=== PATIENT | male | born 1945 | race Caucasian/White ===

== ENCOUNTER 2017-11-01 10:22 | Outpatient (CLI) | payer BC ==
--- NOTE | 2017-11-01 11:54 | RAD ---
SINGLE VIEW OF THE ABDOMEN: COMPARISON: 10/26/16. HISTORY: Calculus of the kidney and renal cyst. FINDINGS: Anterior views of the abdomen show a nonspecific, nonobstructed bowel gas pattern. No obvious calcif ications are seen projecting over either renal shadow or along the course of the ureters. Degenerati ve changes are seen in the spine. Cholecystectomy clips are present. IMPRESSION: No urinary collecting system calculi identified. POS: [facility]
== END 2017-11-01 10:23 | disposition home or self-care (01) ==
LOC: RAD 10:22
PROVIDERS: ATTEND Urology
DX: N20.0 Calculus of kidney (principal); N28.1 Cyst of kidney, acquired; Z12.5 Encounter for screening for malignant neoplasm of prostate; M10.9 Gout, unspecified; R39.198 Other difficulties with micturition; N40.0 Benign prostatic hyperplasia without lower urinary tract symptoms
CPT/HCPCS: 36415; 74018; 80048; 81001; 84550; 87086; G0103

== ENCOUNTER 2018-02-28 09:02 | Outpatient (CLI) | payer BC ==
--- NOTE | 2018-02-28 10:50 | RAD ---
Left knee 4 views: HISTORY: Acute pain of the left knee. FINDINGS/IMPRESSION: Mild degenerative changes are present. No fracture, dislocation, or bony destruction is identified. Surgical clips are noted in the soft tissues posteromedially. POS: [facility]
== END 2018-02-28 09:03 | disposition home or self-care (01) ==
LOC: SCSRAD 09:02
PROVIDERS: ATTEND Nurse Practitioner Family
DX: M25.562 Pain in left knee (principal)

== ENCOUNTER 2018-06-27 07:42 | Outpatient (CLI) | payer BC ==
--- NOTE | 2018-06-27 09:47 | MRI ---
MRI LEFT KNEE: Date: 06/27/18 PROVIDED CLINICAL HISTORY: Left knee pain. FINDINGS: The anterior cruciate ligament, posterior cruciate ligament, medial collateral ligament, and lateral collateral ligamentous complex demonstrates an intact MRI appearance, as does the extensor mechanism. There is complex tearing involving the body and posterior horn of the medial meniscus without definit e meniscal displacement. The lateral meniscus demonstrates no evidence for tear. There is articular cartilage loss which is full thickness over portions of the central weightbearing portions of the medial femorotibial joint. There is marrow edema within the medial tibial plateau wit h superimposed linear T1 and T2 subcortical hypointensity. Articular cartilage loss involves the lateral and patellofemoral joint compartments to a milder degre e, though there is full thickness articular cartilage loss involving the median ridge and medial face t of the patellar regions. There is a mild knee joint effusion. There is a small Chavez's cyst. No additional focal concerning re gional marrow or muscular signal abnormality apparent. IMPRESSION: 1. Complex body and posterior horn medial meniscal tear. 2. Medial femorotibial greater than patellofemoral articular chondrosis with superimposed subchondra l insufficiency fracture involving the medial femoral condyle. 3. Small knee joint effusion. POS: [facility]
== END 2018-06-27 07:43 | disposition home or self-care (01) ==
LOC: MRI 07:42
PROVIDERS: ATTEND Family Medicine
DX: M17.12 Unilateral primary osteoarthritis, left knee (principal); S83.242A Other tear of medial meniscus, current injury, left knee, initial encounter; M84.452A Pathological fracture, left femur, initial encounter for fracture; M25.462 Effusion, left knee

== ENCOUNTER 2018-11-06 14:28 | Outpatient (CLI) | payer BC ==
--- NOTE | 2018-11-06 15:34 | ULT ---
RENAL ULTRASOUND: 11/06/18 HISTORY: Renal cyst. COMPARISON: 01/10/17 CT examination. Real time imaging of the right and left kidneys were performed. The right kidney measures 12.3 and th e left 12 cm in size. Within the right kidney in the mid to upper pole region is a 1.4 cm hypodense l esion which appears to represent a small cyst. Difficult to characterize due to its small size but it does appear stable as compared to the 01/10/17 CT examination. No renal calculi are identified. The bladder region appears unremarkable. Postvoid volume of 135 mL was obtained. IMPRESSION: 1. Right renal cyst which appears stable in size as compared to a 01/10/17 CT. 2. Postvoid residual of t he bladder of 135 mL. POS: [facility]
== END 2018-11-06 14:29 | disposition home or self-care (01) ==
LOC: BICULT 14:28
PROVIDERS: ATTEND Urology
DX: Z12.5 Encounter for screening for malignant neoplasm of prostate (principal); N20.0 Calculus of kidney; N28.1 Cyst of kidney, acquired; M10.9 Gout, unspecified; N40.0 Benign prostatic hyperplasia without lower urinary tract symptoms; R31.29 Other microscopic hematuria
CPT/HCPCS: 76770

== ENCOUNTER 2019-02-05 08:30 | Outpatient (CLI) | payer BC, MEDICARE ==
[2019-02-05 09:49] LABS: Bilirubin Negative (Negative); Blood, Urine Small (Negative); Clarity CLEAR (Clear); Glucose, Urine (Dipstick) Negative (Negative); Leukocyte Negative (Negative); Nitrite Negative (Negative); Protein, Urine (Dipstick) Trace mg/dL (Neg-Trace); Specific Gravity, Urine 1.024 (1.002-1.036); pH, Urine 5.5 (5.0-9.0)
[2019-02-05 09:51] LABS: Bacteria/HPF None Seen HPF (None Seen); Hyaline Casts/LPF 0-3 HYALINE CAST LPF (0-3 Hyaline); Pathc Cast-AUWi Flag 0.54 (0-2.49); Squamous Epithelial 0-3 HPF (0-3); WBC/HPF 0-3 HPF (0-3)
--- NOTE | 2019-02-06 07:19 | EKG ---
Test Reason : Blood Pressure : / mmHG Vent. Rate : 063 BPM Atrial Rate : 063 BPM P-R Int : 172 ms QRS Dur : 134 ms QT Int : 464 ms P-R-T Axes : 039 -14 034 degrees QTc Int : 474 ms ? Demand pacemaker; interpretation is based on intrinsic rhythm /With Sinus Rhythm Sinus rhythm with Possible Premature atrial complexes with Abberant conduction Right bundle branch block Abnormal ECG When compared with ECG of 28-APR-2009 15:04, Electronic demand pacing is now Present Abberant conduction is now Present Right bundle branch block is now Present Confirmed by REMI GE ([id number]) on 02/06/2019 7:19:31 AM Referred By: IERO Confirmed By:REMI GE
== END 2019-02-05 08:31 | disposition home or self-care (01) ==
LOC: LABBT 08:30
PROVIDERS: ATTEND Orthopaedic Surgery
DX: Z01.818 Encounter for other preprocedural examination (principal); M17.12 Unilateral primary osteoarthritis, left knee
CPT/HCPCS: 81001; 87081; 93005; 93010

== ENCOUNTER 2019-02-13 09:23 | Outpatient (CLI) | payer BC, MEDICARE | END 2019-02-13 09:24 | disposition home or self-care (01) | LOC: LABBT 09:23 | PROVIDERS: ATTEND Orthopaedic Surgery | DX: Z01.818 Encounter for other preprocedural examination (principal); M17.12 Unilateral primary osteoarthritis, left knee | CPT/HCPCS: 93005; 93010 ==

== ENCOUNTER 2019-02-16 05:34 | Inpatient (IN) | payer BC, MEDICARE ==
[2019-02-05 12:28] VITALS: BMI 40.3
[2019-02-13 10:20] LABS: #Basophils 0.1 thou/uL (0.0-0.2); #Eosinphils 0.1 thou/uL (0.0-0.7); #Lymphocytes 1.3 thou/uL (1.20-3.40); #Monocytes 0.7 thou/uL (0.11-0.59); #Neutrophils 5.6 thou/uL (1.40-6.50); %Basophils 0.9 % (0.0-1.0); %Eosinophils 1.4 % (0.0-10.0); %Lymphocytes 16.7 % (21.0-51.0); %Monocytes 9.1 % (0.0-10.0); Hemoglobin 14.6 g/dL (14.0-18.0); Mean Corpuscular HGB CONC 33.7 g/dL (32.0-36.0); Mean Corpuscular Hemoglobin 31.7 pg (27.0-31.0); Mean Platelet Volume 8.4 fL (7.4-10.4); Platelet Count 267 thou/uL (130-400); RBC Distribution Width 12.8 % (11.5-14.5); Red Blood Cell (RBC) Count 4.59 mill/uL (4.70-6.10); White Blood Cell (WBC) Count 7.8 thou/uL (4.8-10.8)
[2019-02-13 10:27] LABS: Prothrombin Time 13.3 SEC (12.0-14.7)
[2019-02-13 10:43] LABS: Anion Gap 12 mmol/L (10-20); BUN (Urea Nitrogen) 19 mg/dL (8.4-25.7); Calc. Creatinine Clearance 0 mL/min (70-130); Calcium 9.8 mg/dL (7.8-10.44); Carbon Dioxide 25 mmol/L (23-31); Chloride 109 mmol/L (98-107); Estimated GFR-MDRD 57; Glucose 98 mg/dL (83-110); Potassium 4.3 mmol/L (3.5-5.1); Sodium 142 mmol/L (136-145)
[2019-02-16] MEDS ORDERED: Sodium Chloride 0.9% 100 ML ONE (06:19)
[2019-02-16] MEDS ORDERED: Tranexamic Acid 1,000 MG/10 ML VIAL ONE (06:19)
[2019-02-16] MEDS ORDERED: CEFAZOLIN 1 GM VIAL ONE (06:19)
[2019-02-16] MEDS ORDERED: Fentanyl 100 MCG/2 ML VIAL ONE ×5 (06:25→09:57)
[2019-02-16] MEDS ORDERED: Midazolam HCl 2 mg/2 ml Vial ONE (06:25)
[2019-02-16] MEDS ORDERED: Bupivacaine PF 0.5% 30 ML VIAL ONE (06:41)
[2019-02-16] MEDS ORDERED: Ketorolac Tromethamine 30 MG/ML VIAL ONE (09:57)
[2019-02-16] MEDS ORDERED: traMADol HCl 50 MG TAB PO PRN ×3 (11:01→11:15)
[2019-02-16] MEDS ORDERED: Promethazine HCl 25 MG/ML VIAL IM PRN ×2 (11:01→11:15)
[2019-02-16] MEDS ORDERED: Zolpidem Tartrate 5 MG TAB PO PRN ×2 (11:01→11:15)
[2019-02-16] MEDS ORDERED: Fentanyl 100 MCG/2 ML VIAL SLOW IVP PRN (11:01)
[2019-02-16] MEDS ORDERED: HYDROcodone/Acetaminophen 5/325 mg Tablet PO PRN ×2 (11:01)
[2019-02-16] MEDS ORDERED: Ondansetron PF 4 MG/2 ML Vial IVP PRN (11:01)
[2019-02-16] MEDS ORDERED: diphenhydrAMINE 25 MG CAP PO PRN (11:15)
[2019-02-16] MEDS ORDERED: Acetaminophen 325 MG TAB PO PRN (11:15)
[2019-02-16] MEDS ORDERED: HYDROcodone/Acetaminophen 10/325 mg Tablet PO PRN (11:15)
[2019-02-16] MEDS ORDERED: Morphine 2 MG/ML SYRINGE SLOW IVP PRN (11:55)
[2019-02-16] MEDS ORDERED: Tranexamic Acid 1,000 MG in Sodium Chloride 0.9% 100 ML IVPB SCH (12:00)
[2019-02-16] MEDS ORDERED: Bupivacaine HCl 0.5%/Epinephrine 1:200,000/PF 30 ml Vial ONE (12:04)
[2019-02-16] MEDS ORDERED: Ropivacaine 0.5% HCl/PF (150 MG/30 ML VIAL) ONE (12:04)
[2019-02-16] MEDS ORDERED: Ropivacaine 0.2% HCl/PF (40 MG/20 ML VIAL) ONE (12:04)
--- NOTE | 2019-02-16 12:06 | RAD ---
2 VIEWS LEFT KNEE: INDICATION: Left knee replacement COMPARISON: Prior exam dated 02/28/2018 FINDINGS: There has been interval placement of a left total knee prosthesis. Prosthetic components pr oject in expected position. There is scattered intra-articular and periarticular soft tissue gas. IMPRESSION: Postoperative left knee without gross radiographic evidence of complication Transcribed Date/Time: 02/16/2019 12:19 PM
[2019-02-16] MEDS ORDERED: PROPOFOL 200 MG/20 ML VIAL ONE (13:38)
[2019-02-16] MEDS ORDERED: ePHEDrine 50 MG/ML VIAL ONE (13:38)
[2019-02-16] MEDS ORDERED: Ondansetron PF 4 MG/2 ML Vial ONE (13:38)
[2019-02-16] MEDS ORDERED: Lidocaine 1% PF 5 ML VIAL ONE (13:38)
[2019-02-16] MEDS: Ketorolac Tromethamine 30 MG/ML VIAL IVP SCH ×2 (14:23→22:10)
[2019-02-16] MEDS: CEFAZOLIN 2 GM in Premix Bag 1 BAG IVPB SCH ×2 (15:06→22:13)
[2019-02-16] MEDS ORDERED: Ketorolac Tromethamine 30 MG/ML VIAL IVP PRN (16:00)
[2019-02-16] MEDS: Ondansetron PF 4 MG/2 ML Vial IVP PRN (16:14)
--- NOTE | 2019-02-16 16:16 | OP ---
DATE OF PROCEDURE: 02/16/2019 PREOPERATIVE DIAGNOSIS: Left knee osteoarthrosis. POSTOPERATIVE DIAGNOSIS: Left knee osteoarthrosis. PROCEDURE PERFORMED: Left total knee replacement using [employer] pin-less navigation. CONTENT MANAGEMENT SPECIALIST: Serjio Wallace PA-C BLOOD LOSS: Minimal. COMPLICATIONS: None. The patient had general anesthetic as well as a local knee block. He went to recovery room in stable condition. IMPLANTS: To left knee is a [employer] total knee system. The femur is size 7 cruciate retaining tibial base plate, size 7 primary base plate. We used a 7 x 9 mm CS X3 poly. We used an asymmetric 32 x 10 X3 patella. He went to recovery room in stable condition. INDICATIONS: This is a 73-year-old male, who presents after failed nonoperative treatment for left knee arthritis. At this time, he wished to have his knee replaced. PROCEDURE IN DETAIL: After all appropriate consent forms were explained and signed, the patient was taken back to the operating room and at this time was given general anesthetic. Once the level of anesthesia was appropriate, a well-padded tourniquet was placed on the left leg, and the leg was then prepped and draped in standard surgical fashion. The limb was exsanguinated and tourniquet taken up to 300 mmHg. Midline incision was made with a 10 blade down through the skin and subcutaneous tissue. Bovie electrocautery was used to coagulate any brisk venous bleeding. A new blade was used to make a medial parapatellar arthrotomy. Small subperiosteal release was performed medially and excess fat pad was removed. The knee was flexed up to gain access to the femur. The femur was navigated and distal femoral resection was made. Epicondylar access was used to align our sizing jig and this was pinned in place. We sized our femur to be a 7. 4:1 cutting block was applied and pinned. Anterior and posterior chamfer cuts were then made. We navigated out our proximal tibia and made our proximal tibial resection. Spreaders were used to remove any posterior osteophytes off the back of the femur as well as remaining meniscal tissue. A long alignment sonia was then used to achieve correct rotation of our tibial baseplate and a size 7 was chosen. This was pinned in place. We trialed the polyethylene and a 7 x 9 mm CS X3 polyethylene gave us full extension and good stability throughout range of motion. Two towel clips and a saw were used to cut our patella. Three lug nuts were drilled and 32 x 10 X3 patella was trialed which sat nicely in the trochlear groove. We then drilled our femur and punched our tibia. All components were removed. The knee was thoroughly irrigated and dried. Cement was mixed into the cement gun on the back table. Components were then placed. The knee was held out in full extension until the cement had dried. All excess bone cement was removed. Multiple #2 Vicryl stitches as well as a Quill were used to close our extensor mechanism. 0 Quill followed by a running Monoderm was then used to close the skin. Surgicel glue was then used on the skin. Once this had dried, soft tissue dressing was applied to the limb, tourniquet was let down, and the toes pinked up nicely. The patient was then awakened and taken to the recovery room in stable condition. All counts were correct at the end of the case. The patient did receive preoperative IV antibiotics. The patient was injected with Exparel for postoperative pain relief. Job ID: [id number]
--- NOTE | 2019-02-16 16:46 | PDOC.PN ---
- Subjective Encounter Start Date: 02/16/19 Encounter Start Time: 16:35 Subjective: Consult for gen med mgmt s/p L TKA with hx of HTN, CAD, renal stones. -: States some post op nausea now resolved. No CP, SOB, fever. -: Reviewed all hx, labs, rads and EKG's. - Objective MAR Reviewed: Yes Vital Signs & Weight: Vital Signs (12 hours) Temp Pulse Resp BP Pulse Ox 02/16/19 12:05 98.0 F 67 18 148/78 H 95 Weight Weight 281 lb Result Diagrams: 02/13/19 09:35 02/13/19 09:35 EKG Reviewed by me: Yes (02/13/19 - SR with PVC's, RBB) Phys Exam - Physical Examination Constitutional: NAD HEENT: PERRLA, sclera anicteric, oral pharynx no lesions Neck: no nodes, no JVD, supple, full ROM Respiratory: no wheezing, no rales, no rhonchi, clear to auscultation bilateral S1, S2 Cardiovascular: RRR, no significant murmur, no rub, gallop Gastrointestinal: soft, non-tender, no distention, positive bowel sounds L knee with dressing in place, + edema Musculoskeletal: pulses present Neurological: moves all 4 limbs Psychiatric: A&O x 3 Skin: normal turgor, cap refill <2 seconds Dx/Plan (1) HTN (hypertension) Code(s): I10 - ESSENTIAL (PRIMARY) HYPERTENSION Status: Chronic Qualifiers: Hypertension type: essential hypertension Qualified Code(s): I10 - Essential (primary) hypertension Comment: Resume home BP regimen, Hydralazine PRN (2) CAD (coronary artery disease) Code(s): I25.10 - ATHSCL HEART DISEASE OF [place] CORONARY ARTERY W/O ANG PCTRS Status: Chronic Comment: Continue ASA, Metoprolol (3) DM II (diabetes mellitus, type II), controlled Code(s): E11.9 - TYPE 2 DIABETES MELLITUS WITHOUT COMPLICATIONS Status: Acute Comment: ISS, resume Metformin 500mg BID, serial accuchecks (4) CKD (chronic kidney disease), stage III Code(s): N18.3 - CHRONIC KIDNEY DISEASE, STAGE 3 (MODERATE) Status: Chronic Comment: Avoid nephrotoxic meds and limit contrast exposure - Plan plan discussed w/ family, continue antibiotics, PT/OT, social work assistant, incentive spirometry, out of bed/ambulate, DVT proph w/SCDs Stable currently -: Continue ASA 81mg BID -: Resume home BP regimen -: Add ISS, serial accuchecks -: AM lab: CBC * Thank you for the consult, will continue to follow with primary service.
[2019-02-16] MEDS ORDERED: hydrALAZINE 20 MG/ML VIAL SLOW IVP PRN (16:51)
[2019-02-16] MEDS ORDERED: Dextrose 50% Abboject 50 ML SYRINGE SLOW IVP PRN (16:51)
[2019-02-16] MEDS ORDERED: HumaLOG 300 UNITS/3 ML VIAL SC PRN ×2 (16:51)
[2019-02-16] MEDS ORDERED: Dextrose 5% in Water 1,000 ML IV PRN (16:51)
[2019-02-16] MEDS: metFORMIN 500 MG TAB PO SCH (22:00)
[2019-02-16] MEDS: Senokot S 8.6-50 MG TAB PO SCH (22:00)
[2019-02-16] MEDS: Ferrous Gluconate 324 MG TAB PO SCH (22:00)
[2019-02-16] MEDS: Aspirin 81 mg Enteric Coated Tablet PO SCH (22:00)
[2019-02-17 06:01] LABS: Hemoglobin 12.2 g/dL (14.0-18.0); Mean Corpuscular HGB CONC 33.3 g/dL (32.0-36.0); Mean Corpuscular Hemoglobin 31.7 pg (27.0-31.0); Mean Platelet Volume 8.3 fL (7.4-10.4); Platelet Count 233 thou/uL (130-400); RBC Distribution Width 12.8 % (11.5-14.5); Red Blood Cell (RBC) Count 3.86 mill/uL (4.70-6.10); White Blood Cell (WBC) Count 10.7 thou/uL (4.8-10.8)
[2019-02-17] MEDS: Ketorolac Tromethamine 30 MG/ML VIAL IVP SCH ×3 (06:21→21:10)
[2019-02-17] MEDS ORDERED: Prevnar 13-Val Conj/PF 0.5 ML SYRINGE IM ONE (09:00)
[2019-02-17] MEDS: Ferrous Gluconate 324 MG TAB PO SCH ×2 (09:23→20:53)
[2019-02-17] MEDS: Senokot S 8.6-50 MG TAB PO SCH ×2 (09:23→20:54)
[2019-02-17] MEDS: Multivitamin W/ Minerals 1 TAB PO SCH (09:23)
[2019-02-17] MEDS: metFORMIN 500 MG TAB PO SCH ×2 (09:24→20:54)
[2019-02-17] MEDS: Aspirin 81 mg Enteric Coated Tablet PO SCH ×2 (09:24→20:53)
[2019-02-17] MEDS: Ezetimibe 10 MG TAB PO SCH (09:24)
--- NOTE | 2019-02-17 10:16 | PRG ---
DATE OF SERVICE: DATE OF PROCEDURE: February 16, 2019. SUBJECTIVE: Rock is a 73-year-old white male, who is postop day 1 from left total knee arthroplasty. He is doing relatively well. He has ambulated 160 feet today. His pain is controlled with the block, but he still admits to little discomfort to suprapatellar pouch. OBJECTIVE: VITAL SIGNS: Stable. GENERAL: He is alert and oriented to person, place, time, situation, grossly nonfocal. EXTREMITIES: He is neurovascularly intact in both lower extremities. There is no strike through. No erythema noted at the incision. IMPRESSION: This is a 73-year-old white male, postop day 1 left total knee arthroplasty, doing well. PLAN: Continue current care, probable discharge tomorrow. Job ID: [id number]
[2019-02-17] MEDS: Ropivacaine HCl/PF 250 ML in Premix Bag 1 BAG NERVE BLCK SCH (11:39)
[2019-02-17] MEDS: HYDROcodone/Acetaminophen 10/325 mg Tablet PO PRN (13:31)
--- NOTE | 2019-02-17 22:00 | PDOC.PN ---
- Subjective Encounter Start Date: 02/17/19 Encounter Start Time: 13:00 Patient seen and examined for med mngt. No new complaints. Pain controlled. No CP/SOB. No overnight events - Objective MAR Reviewed: Yes Vital Signs & Weight: Vital Signs (12 hours) Temp Pulse Resp BP BP Pulse Ox 02/17/19 20:41 99.1 F 71 20 122/77 95 02/17/19 15:28 98.6 F 80 18 138/79 93 L 02/17/19 13:00 99.7 F H 67 18 152/84 H 92 L Weight Admit Weight 281 lb Weight 281 lb I&O: 02/16/19 02/17/19 02/18/19 06:59 06:59 06:59 Intake Total 1385.5 Output Total 950 Balance 435.5 Result Diagrams: 02/18/19 04:42 02/18/19 04:42 Additional Labs: Accuchecks 02/17/19 02/17/19 02/17/19 21:11 16:03 14:02 POC Glucose 129 H 124 H 112 H 02/17/19 02/16/19 05:56 22:02 POC Glucose 115 H 125 H EKG Reviewed by me: Yes (SR) Phys Exam - Physical Examination Constitutional: NAD Respiratory: no wheezing, no rhonchi Cardiovascular: RRR, no rub Gastrointestinal: soft, non-tender, positive bowel sounds Musculoskeletal: no edema Neurological: moves all 4 limbs Dx/Plan - Plan plan discussed w/ family, PT/OT, incentive spirometry, DVT proph w/SCDs IMPRESSION: HTN HLD CKD 2 Morbid Obesity BMI 40.3 CAD s/p CABG DM2 PLAN: Cont Toprol Cont Metformin with sliding scale Cont Amlodipine Cont Statins Cont IS AM labs Review of Systems - Review of Systems Respiratory: negative: Cough, Dry, Shortness of Breath, Hemoptysis, SOB with Excertion, Pleuritic Pain, Sputum, Wheezing Cardiovascular: negative: chest pain, palpitations, orthopnea, paroxysmal nocturnal dyspnea, edema, light headedness, other - Medications/Allergies Allergies/Adverse Reactions: Allergies Allergy/AdvReac Type Severity Reaction Status Date / Time No Known Allergies Allergy Verified 02/05/19 09:03 Medications: Current Medications Acetaminophen (Tylenol) 650 mg PO Q4H PRN PRN Reason: Headache/Fever or Pain Hydrocodone Bitart/Acetaminophen ([place] 10/325) 1 tab PO Q4H PRN PRN Reason: Moderate Pain (4-6) Hydrocodone Bitart/Acetaminophen ([place] 10/325) 2 tab PO Q4H PRN PRN Reason: Severe Pain (7-10) Last Admin: 02/17/19 13:31 Dose: 2 tab Aspirin (Ecotrin) 81 mg PO BID [facility] Last Admin: 02/17/19 20:53 Dose: 81 mg Dextrose/Water (Dextrose 50%) 25 gm SLOW IVP PRN PRN PRN Reason: Hypoglycemia Diphenhydramine HCl (Benadryl) 25 mg PO Q6H PRN PRN Reason: Itching Ezetimibe (Zetia) 10 mg PO DAILY [facility] Last Admin: 02/17/19 09:24 Dose: 10 mg Fentanyl (Sublimaze) 50 mcg SLOW IVP Q1H PRN PRN Reason: breakthrough pain Ferrous Gluconate (Fergon) 324 mg PO BID [facility] Last Admin: 02/17/19 20:53 Dose: 324 mg Glucagon (Glucagon) 1 mg IM PRN PRN PRN Reason: Hypoglycemia Hydralazine HCl (Apresoline) 10 mg SLOW IVP Q4H PRN PRN Reason: SBP > 180 and HR < 70 Vancomycin HCl 2 gm/ Sodium (Chloride) 500 mls @ 250 mls/hr IVPB ONCALL-OR [place] Ropivacaine 250 ml/ Device 250 mls @ 10 mls/hr NERVE BLCK INF [facility] Last Admin: 02/17/19 11:39 Dose: 250 mls Dextrose/Water (D5w) 1,000 mls @ 0 mls/hr IV .Q0M PRN PRN Reason: Hypoglycemia Insulin Human Lispro (Humalog) 0 units SC .MILD SLIDING SCALE PRN PRN Reason: Mild Correctional Scale Insulin Human Lispro (Humalog) 0 units SC .BEDTIME SLIDING SC PRN PRN Reason: Bedtime Correctional Scale Irbesartan (Avapro) 150 mg PO DAILY [facility] Last Admin: 02/17/19 09:24 Dose: 150 mg Iron/Minerals/Multivitamins (Theragran M) 1 tab PO DAILY [facility] Last Admin: 02/17/19 09:23 Dose: 1 tab Ketorolac Tromethamine (Toradol) 15 mg IVP Q6H PRN PRN Reason: Pain Stop: 02/21/19 16:01 Ketorolac Tromethamine (Toradol) 15 mg IVP Q8HR [facility] Stop: 02/18/19 14:01 Last Admin: 02/17/19 21:10 Dose: 15 mg Metformin HCl (Glucophage) 500 mg PO BID [facility] Last Admin: 02/17/19 20:54 Dose: 500 mg Metoprolol Succinate (Toprol Xl) 25 mg PO DAILY [facility] Last Admin: 02/17/19 09:24 Dose: 25 mg Morphine Sulfate (Morphine) 2 mg SLOW IVP Q2H PRN PRN Reason: Moderate Pain (4-6) Ondansetron HCl (Zofran) 4 mg IVP Q6H PRN PRN Reason: Nausea/Vomiting Last Admin: 02/16/19 16:14 Dose: 4 mg Promethazine HCl (Phenergan) 12.5 mg IM Q4H PRN PRN Reason: Nausea/Vomiting Senna/Docusate Sodium (Senokot S) 2 tab PO BID [facility] Last Admin: 02/17/19 20:54 Dose: 2 tab Sodium Chloride (Flush - Normal Saline) 10 ml IVF PRN PRN PRN Reason: Saline Flush Last Admin: 02/17/19 06:22 Dose: 10 ml Tramadol HCl (Ultram) 50 mg PO Q6H PRN PRN Reason: Mild Pain (1-3) Tramadol HCl (Ultram) 100 mg PO Q6H PRN PRN Reason: Moderate Pain (4-6) Zolpidem Tartrate (Ambien) 5 mg PO HSPRN PRN PRN Reason: Insomnia Last Admin: 02/16/19 22:26 Dose: 5 mg
[2019-02-18] MEDS: HYDROcodone/Acetaminophen 10/325 mg Tablet PO PRN ×3 (04:20→20:21)
[2019-02-18 05:13] LABS: Mean Corpuscular HGB CONC 32.1 g/dL (32.0-36.0); Mean Corpuscular Hemoglobin 30.7 pg (27.0-31.0); Mean Corpuscular Volume 95.5 fL (78.0-98.0); Mean Platelet Volume 8.3 fL (7.4-10.4); Platelet Count 216 thou/uL (130-400); RBC Distribution Width 12.8 % (11.5-14.5); Red Blood Cell (RBC) Count 3.59 mill/uL (4.70-6.10); White Blood Cell (WBC) Count 11.7 thou/uL (4.8-10.8)
[2019-02-18 05:33] LABS: Anion Gap 10 mmol/L (10-20); BUN (Urea Nitrogen) 17 mg/dL (8.4-25.7); Calc. Creatinine Clearance 104 mL/min (70-130); Calcium 8.9 mg/dL (7.8-10.44); Carbon Dioxide 25 mmol/L (23-31); Chloride 105 mmol/L (98-107); Estimated GFR-MDRD 61; Glucose 117 mg/dL (83-110); Magnesium 1.7 mg/dL (1.6-2.6); Sodium 136 mmol/L (136-145)
[2019-02-18] MEDS: Ketorolac Tromethamine 30 MG/ML VIAL IVP SCH ×2 (06:21→14:25)
[2019-02-18] MEDS ORDERED: Polyethylene Glycol 3350 17 GM Packet PO PRN (06:39)
[2019-02-18] MEDS: Ezetimibe 10 MG TAB PO SCH (08:17)
[2019-02-18] MEDS: Ferrous Gluconate 324 MG TAB PO SCH ×2 (08:17→20:19)
[2019-02-18] MEDS: Aspirin 81 mg Enteric Coated Tablet PO SCH ×2 (08:18→20:19)
[2019-02-18] MEDS: metFORMIN 500 MG TAB PO SCH ×2 (08:18→20:21)
[2019-02-18] MEDS: Senokot S 8.6-50 MG TAB PO SCH ×2 (08:18→20:21)
[2019-02-18] MEDS: Multivitamin W/ Minerals 1 TAB PO SCH (08:18)
[2019-02-18] MEDS: Ondansetron PF 4 MG/2 ML Vial IVP PRN ×2 (08:30→14:24)
--- NOTE | 2019-02-18 09:52 | PRG ---
DATE OF SERVICE: 02/18/2019 SUBJECTIVE: Rock is a 73-year-old white male, postop day 2 from a left total knee arthroplasty. His pain has been relatively well controlled, but unfortunately this morning, he has had some significant nausea and vomiting. Etiology unclear. This is a new problem for him, but he denies any abdominal pain, shortness of breath, or any cardiac symptoms. No constitutional symptoms preceded this. OBJECTIVE: VITAL SIGNS: Temperature 98.2, pulse 71, respiratory rate 16 and nonlabored, O2 saturation on room air is 91%, blood pressure 129/63. NEUROLOGIC: He is alert and oriented to person, place, time, and situation. Grossly nonfocal. He is neurovascularly intact in both lower extremities. There is no strike through. No erythema noted. LABORATORY DATA: His hemoglobin and hematocrit 11 and 34. IMPRESSION: 1. A 73-year-old white male postoperative day 2, left total knee arthroplasty. 2. New onset emesis, nausea and vomiting, etiology unclear. PLAN: Continue current care. Symptomatic treatment with Zofran. Hold discharge for now. Probable discharge tomorrow. I would like to watch him overnight because of this new onset. Job ID: [id number]
[2019-02-18] MEDS ORDERED: Metoclopramide HCl 10 MG TAB PO SCH (12:45)
[2019-02-18] MEDS: Ropivacaine HCl/PF 250 ML in Premix Bag 1 BAG NERVE BLCK SCH (12:50)
[2019-02-18] MEDS: Magnesium Chloride 64 MG TAB PO SCH ×2 (14:27→20:20)
--- NOTE | 2019-02-18 17:08 | PDOC.PN ---
- Subjective Encounter Start Date: 02/18/19 Encounter Start Time: 16:00 Patient seen and examined for med mngt. Nausea since this AM. Recieved Reglan/ Zofran and Phenergan. Feels better now. Tolerated lunch. No fever/chills/Abd pain. Passing gas. No BM. No other complaints. No overnight events - Objective MAR Reviewed: Yes Vital Signs & Weight: Vital Signs (12 hours) Temp Pulse Resp BP Pulse Ox 02/18/19 15:57 98.8 F 76 15 131/60 92 L 02/18/19 08:28 98.2 F 71 16 129/63 91 L Weight Admit Weight 281 lb Weight 281 lb I&O: 02/17/19 02/18/19 02/19/19 06:59 06:59 06:59 Intake Total 1385.5 500 Output Total 950 Balance 435.5 500 Result Diagrams: 02/18/19 04:42 02/18/19 04:42 Additional Labs: Accuchecks 02/18/19 02/18/19 02/17/19 15:45 06:22 21:11 POC Glucose 117 H 110 129 H EKG Reviewed by me: Yes Phys Exam - Physical Examination Constitutional: NAD Respiratory: no wheezing, no rhonchi Cardiovascular: RRR, no rub Gastrointestinal: soft, non-tender, no distention, positive bowel sounds no guarding/rigidity Musculoskeletal: no edema Neurological: non-focal, moves all 4 limbs Psychiatric: A&O x 3 Dx/Plan - Plan DVT proph w/SCDs IMPRESSION: HTN HLD Nausea - improving CKD 2 Morbid Obesity BMI 40.3 CAD s/p CABG DM2 - on Metformin with sliding scale PLAN: Cont PRN Antiemetics Cont Toprol/Amlodipine Cont Cont Statins Cont other meds as below Review of Systems - Review of Systems Respiratory: negative: Cough, Dry, Shortness of Breath, Hemoptysis, SOB with Excertion, Pleuritic Pain, Sputum, Wheezing Cardiovascular: negative: chest pain, palpitations, orthopnea, paroxysmal nocturnal dyspnea, edema, light headedness, other - Medications/Allergies Allergies/Adverse Reactions: Allergies Allergy/AdvReac Type Severity Reaction Status Date / Time No Known Allergies Allergy Verified 02/05/19 09:03 Medications: Current Medications Acetaminophen (Tylenol) 650 mg PO Q4H PRN PRN Reason: Headache/Fever or Pain Hydrocodone Bitart/Acetaminophen ([place] 10/325) 1 tab PO Q4H PRN PRN Reason: Moderate Pain (4-6) Hydrocodone Bitart/Acetaminophen ([place] 10/325) 2 tab PO Q4H PRN PRN Reason: Severe Pain (7-10) Last Admin: 02/18/19 08:19 Dose: 2 tab Aspirin (Ecotrin) 81 mg PO BID [facility] Last Admin: 02/18/19 08:18 Dose: 81 mg Dextrose/Water (Dextrose 50%) 25 gm SLOW IVP PRN PRN PRN Reason: Hypoglycemia Diphenhydramine HCl (Benadryl) 25 mg PO Q6H PRN PRN Reason: Itching Ezetimibe (Zetia) 10 mg PO DAILY [facility] Last Admin: 02/18/19 08:17 Dose: 10 mg Fentanyl (Sublimaze) 50 mcg SLOW IVP Q1H PRN PRN Reason: breakthrough pain Ferrous Gluconate (Fergon) 324 mg PO BID [facility] Last Admin: 02/18/19 08:17 Dose: 324 mg Glucagon (Glucagon) 1 mg IM PRN PRN PRN Reason: Hypoglycemia Hydralazine HCl (Apresoline) 10 mg SLOW IVP Q4H PRN PRN Reason: SBP > 180 and HR < 70 Vancomycin HCl 2 gm/ Sodium (Chloride) 500 mls @ 250 mls/hr IVPB ONCALL-OR [facility] Ropivacaine 250 ml/ Device 250 mls @ 10 mls/hr NERVE BLCK INF [facility] Last Admin: 02/18/19 12:50 Dose: 250 mls Dextrose/Water (D5w) 1,000 mls @ 0 mls/hr IV .Q0M PRN PRN Reason: Hypoglycemia Insulin Human Lispro (Humalog) 0 units SC .MILD SLIDING SCALE PRN PRN Reason: Mild Correctional Scale Insulin Human Lispro (Humalog) 0 units SC .BEDTIME SLIDING SC PRN PRN Reason: Bedtime Correctional Scale Irbesartan (Avapro) 150 mg PO DAILY [facility] Last Admin: 02/18/19 14:26 Dose: 150 mg Iron/Minerals/Multivitamins (Theragran M) 1 tab PO DAILY [facility] Last Admin: 02/18/19 08:18 Dose: 1 tab Ketorolac Tromethamine (Toradol) 15 mg IVP Q6H PRN PRN Reason: Pain Stop: 02/21/19 16:01 Magnesium Chloride (Slow-Mag) 64 mg PO BID [facility] Last Admin: 02/18/19 14:27 Dose: 64 mg Metformin HCl (Glucophage) 500 mg PO BID [facility] Last Admin: 02/18/19 08:18 Dose: 500 mg Metoprolol Succinate (Toprol Xl) 25 mg PO DAILY [facility] Last Admin: 02/18/19 08:18 Dose: 25 mg Morphine Sulfate (Morphine) 2 mg SLOW IVP Q2H PRN PRN Reason: Moderate Pain (4-6) Ondansetron HCl (Zofran) 4 mg IVP Q6H PRN PRN Reason: Nausea/Vomiting Last Admin: 02/18/19 14:24 Dose: 4 mg Ondansetron HCl (Zofran) 4 mg SLOW IVP Q6HR [facility] Polyethylene Glycol (Miralax) 17 gm PO DAILY PRN PRN Reason: Constipation Last Admin: 02/18/19 08:27 Dose: 17 gm Promethazine HCl (Phenergan) 12.5 mg IM Q4H PRN PRN Reason: Nausea/Vomiting Last Admin: 02/18/19 11:41 Dose: 12.5 mg Senna/Docusate Sodium (Senokot S) 2 tab PO BID [facility] Last Admin: 02/18/19 08:18 Dose: 2 tab Sodium Chloride (Flush - Normal Saline) 10 ml IVF PRN PRN PRN Reason: Saline Flush Last Admin: 02/18/19 08:20 Dose: 10 ml Tramadol HCl (Ultram) 50 mg PO Q6H PRN PRN Reason: Mild Pain (1-3) Tramadol HCl (Ultram) 100 mg PO Q6H PRN PRN Reason: Moderate Pain (4-6) Zolpidem Tartrate (Ambien) 5 mg PO HSPRN PRN PRN Reason: Insomnia Last Admin: 02/16/19 22:26 Dose: 5 mg
[2019-02-18] MEDS: Ondansetron PF 4 MG/2 ML Vial SLOW IVP SCH ×2 (17:52→23:37)
[2019-02-19 05:27] LABS: Hemoglobin 11.3 g/dL (14.0-18.0); Mean Corpuscular HGB CONC 32.8 g/dL (32.0-36.0); Mean Corpuscular Hemoglobin 31.5 pg (27.0-31.0); Platelet Count 203 thou/uL (130-400); RBC Distribution Width 12.7 % (11.5-14.5); White Blood Cell (WBC) Count 9.3 thou/uL (4.8-10.8)
[2019-02-19] MEDS: HYDROcodone/Acetaminophen 10/325 mg Tablet PO PRN ×2 (05:52→10:05)
[2019-02-19] MEDS: Ondansetron PF 4 MG/2 ML Vial SLOW IVP SCH ×2 (05:52→14:38)
[2019-02-19] MEDS: Ferrous Gluconate 324 MG TAB PO SCH (08:24)
[2019-02-19] MEDS: Senokot S 8.6-50 MG TAB PO SCH (08:24)
[2019-02-19] MEDS: Multivitamin W/ Minerals 1 TAB PO SCH (08:24)
[2019-02-19] MEDS: Aspirin 81 mg Enteric Coated Tablet PO SCH (08:24)
[2019-02-19] MEDS: metFORMIN 500 MG TAB PO SCH (08:26)
[2019-02-19] MEDS: Ezetimibe 10 MG TAB PO SCH (08:26)
[2019-02-19] MEDS: Magnesium Chloride 64 MG TAB PO SCH (08:27)
[2019-02-19 12:29] VITALS: BP 143/79; TEMP 98.4
== END 2019-02-19 14:45 | disposition home or self-care (01) | DRG 470 ==
LOC: SJJU 05:34
PROVIDERS: ADMIT Orthopaedic Surgery; ATTEND Orthopaedic Surgery
PROC: 0SRD0J9 Replacement of Left Knee Joint with Synthetic Substitute, Cemented, Open Approach (ICD-10-PCS; principal; 2019-02-16)
DX: M17.12 Unilateral primary osteoarthritis, left knee (principal); Z68.41 Body mass index [BMI] 40.0-44.9, adult; I25.10 Atherosclerotic heart disease of native coronary artery without angina pectoris; N18.3 Chronic kidney disease, stage 3 (moderate); I12.9 Hypertensive chronic kidney disease with stage 1 through stage 4 chronic kidney disease, or unspecified chronic kidney disease; E66.01 Morbid (severe) obesity due to excess calories; E11.22 Type 2 diabetes mellitus with diabetic chronic kidney disease; E78.5 Hyperlipidemia, unspecified; R11.2 Nausea with vomiting, unspecified; Z90.49 Acquired absence of other specified parts of digestive tract; Z95.1 Presence of aortocoronary bypass graft; Z79.84 Long term (current) use of oral hypoglycemic drugs
CPT/HCPCS: 36415; 36416; 80048; 83735; 85025; 85027; 85610; 86850; 86900; 86901; 93005; 93010; C1713; C1776; J0670; J0690; J1885; J2001; J2250; J2405; J2550; J2704; J2795; J3010; J3370; J3490; J7050; J8597; S0020

== ENCOUNTER 2019-11-25 12:29 | Outpatient (CLI) | payer BC ==
--- NOTE | 2019-11-25 12:54 | RAD ---
Exam: 1 view abdomen COMPARISON: 11/01/2017 HISTORY: Renal calculi and renal cysts. FINDINGS: Nonspecific bowel gas pattern. No suspicious densities in the abdomen or pelvis. Stable cortez gical clips in the right upper and left hemipelvis. No acute osseous abnormalities. IMPRESSION: No radiographic evidence of nephrolithiasis.
--- NOTE | 2019-11-25 13:27 | ULT ---
US Renal Bilateral STANDARD: 11/25/2019 12:00 AM CLINICAL HISTORY: Renal cyst. STUDY: Renal ultrasound COMPARISON: 11/06/2018 FINDINGS: Right kidney: Echogenicity: Normal. Masses/cysts: 1.8 cm cyst Hydronephrosis: None. Calcifications: None. Length: 11.3 cm Left kidney: Echogenicity: Normal. Masses/cysts: None. Hydronephrosis: None. Calcifications: None. Length: 11.1 cm Limited visualization of the urinary bladder is unremarkable. IMPRESSION: Stable right renal cyst
== END 2019-11-25 12:30 | disposition home or self-care (01) ==
LOC: BICULT 12:29
PROVIDERS: ATTEND Urology
DX: N20.0 Calculus of kidney (principal); N28.1 Cyst of kidney, acquired
CPT/HCPCS: 36415; 74018; 76770; 81001; 84550; G0103